=== PATIENT | male | born 1985 | race Caucasian/White ===

== ENCOUNTER 2020-10-12 13:57 | Emergency (ER) | payer OTHER ==
[2020-10-12 14:05] VITALS: BMI 32.4
[2020-10-12 14:59] LABS: BASO % 0.9 % (0-2.0); EOS % 0.4 % (0-4.5); HEMOGLOBIN 14.7 GM/dL (11.7-16.9); LYMPH % 22.6 % (8-40); MCH 30.2 pg (25.7-33.7); MCHC 34.3 g/dl (32.0-35.9); MEAN CELL VOLUME 88.3 fl (80-96); MEAN PLT VOLUME 9.6 fl (7.5-11.1); MONO % 6.9 % (3.8-10.2); NEUT % 69.2 % (42.8-82.8); PLATELET COUNT 293 K/MM3 (134-434); RBC 4.87 M/mm3 (4.00-5.60); RDW 13.7 % (11.9-15.9); WHITE BLOOD COUNT 9.6 K/mm3 (4.0-10.0)
[2020-10-12 15:21] LABS: POTASSIUM 4.3 mmol/L (3.5-5.1)
[2020-10-12 15:23] LABS: CALCIUM 9.7 mg/dL (8.5-10.1)
[2020-10-12 15:24] LABS: ALBUMIN 4.4 g/dl (3.4-5.0); BLOOD UREA NITROGEN 12.4 mg/dL (7-18)
[2020-10-12 15:26] LABS: CREATININE 0.9 mg/dL (0.55-1.3)
[2020-10-12 15:28] LABS: BILIRUBIN,TOTAL 0.7 mg/dL (0.2-1); TOT PROT 8.1 g/dl (6.4-8.2)
[2020-10-12] MEDS ORDERED: amLODIPine BESYLATE 5 MG TABLET (FP) PO ONE (15:29)
[2020-10-12] MEDS ORDERED: amLODIPine BESYLATE 5 MG TABLET (FP) ONE (16:08)
[2020-10-12 16:20] LABS: URINE APPEARANCE CLEAR; URINE BILIRUBIN NEGATIVE (NEGATIVE); URINE COLOR YELLOW; URINE GLUCOSE (UA) NEGATIVE (NEGATIVE); URINE KETONE NEGATIVE (NEGATIVE); URINE LEUK ESTERASE NEGATIVE (NEGATIVE); URINE NITRITE NEGATIVE (NEGATIVE); URINE PROTEIN NEGATIVE (NEGATIVE); URINE UROBILINOGEN 0.2 mg/dL (0.2-1.0)
[2020-10-12 16:26] LABS: PROTHROMBIN TIME (PATIENT) 12.3 SEC (9.7-13.0)
[2020-10-12 16:28] LABS: ACTIVATED PTT 33.6 SECONDS (25.2-36.5)
[2020-10-12 17:16] VITALS: BP 155/96; PULSE 95; TEMP 98.9
== END 2020-10-12 17:18 | disposition home or self-care (01) ==
LOC: JER 13:57
DX: R10.11 Right upper quadrant pain (principal); R50.9 Fever, unspecified; I10 Essential (primary) hypertension
CPT/HCPCS: 36415; 71045-TC-FY; 76705-TC; 80053; 81003; 83690; 85025; 85610; 85730; 86900; 99285-25; C9803; U0003